=== PATIENT | female | born 1975 | race Caucasian/White ===

== ENCOUNTER 2020-03-01 14:35 | Emergency (ER) | payer OTHER, SELFPAY ==
[2020-03-01 14:41] VITALS: BP 163/88; PULSE 107; RESP 20; TEMP 37; O2SAT 98
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
[2020-03-01] MEDS: KETOROLAC 60 MG/2 ML VIAL 30 MG IM (17:07)
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
[2020-03-01 18:10] VITALS: BP 158/72; PULSE 70; RESP 16; O2SAT 99
== END 2020-03-01 18:11 | disposition home or self-care (01) ==
PROVIDERS: Emergency Provider Emergency Medicine
DX: S16.1XXA Strain of muscle, fascia and tendon at neck level, initial encounter (principal); M54.9 Dorsalgia, unspecified; V89.2XXA Person injured in unspecified motor-vehicle accident, traffic, initial encounter
CPT/HCPCS: 71046; 72040; 72072; 72125; 96372; 99284; J1885